=== PATIENT | female | born 1955 | race Caucasian/White ===

== ENCOUNTER 2024-12-03 09:27 | Inpatient (IN) | payer MEDICARE, BC ==
[~2024-12-03] VITALS: Ht 160 cm; Wt 51.7 kg
[2024-12-03] VITALS (25 sets, daily range): BP systolic 110–144; BP diastolic 58–85; PULSE 74–108; RESP 15–26; TEMP 97.8–98.4; O2SAT 92–100
[~2024-12-03 09:27] MED LIST: CYMBALTA30 MG PO; LISINOPRIL10 MG PO; LYRICA75 MG PO; NORCO 10-325 T1 EACH PO; PLAVIX75 MG PO; SOMA350 MG PO
[2024-12-03] MEDS: SODIUM CHLORIDE 0.9% 1000ML 1,000 ML IV STA ×2 (10:02→10:03)
[2024-12-03] MEDS: ONDANSETRON HCL INJ 2MG/ML 2ML 2 MG/ML VIAL IV STA (10:05)
[2024-12-03] MEDS: Morphine 4mg INJECTION 4 MG/ML INJ IV STA (10:11)
[2024-12-03 10:16] LABS: INR 1.08; PROTHROMBIN TIME 14.7 seconds (11.9-14.5)
[2024-12-03 10:17] LABS: BASOPHILS # (AUTO) 0.1 (0.0-0.1); BASOPHILS % 0.6 % (0.0-1.0); HEMATOCRIT 44.7 % (34.2-44.1); LYMPHOCYTES # (AUTO) 1.5 (1.0-3.2); LYMPHOCYTES % 8.8 % (18.0-39.1); MEAN CORPUSCULAR HEMOGLOBIN 31.3 pg (28-32); MEAN CORPUSCULAR HGB CONC 33.6 g/dL (31-35); MEAN CORPUSCULAR VOLUME 93.1 fL (81-99); MONOCYTES # (AUTO) 1.3 (0.2-0.8); MONOCYTES % 7.8 % (4.4-11.3); NEUTROPHILS # (AUTO) 13.9 (2.1-6.9); NEUTROPHILS % 82.3 % (38.7-80.0); PARTIAL THROMBOPLASTIN TIME 34.7 seconds (23.8-35.5); PLATELET COUNT 208 x10e3/uL (140-360); RED CELL DISTRIBUTION WIDTH 13.4 % (11.7-14.4); WHITE BLOOD COUNT 16.92 x10e3/uL (4.8-10.8)
[2024-12-03 10:24] LABS: ALBUMIN 3.2 g/dL (3.5-5.0); ALBUMIN/GLOBULIN RATIO 1.1 (0.8-2.0); ANION GAP 17.3 mmol/L (8-16); BILIRUBIN,TOTAL 0.5 mg/dL (0.2-1.2); CALCIUM 8.9 mg/dL (8.4-10.2); CREATININE, SERUM 1.35 mg/dL (0.57-1.11); MAGNESIUM 2.2 MG/DL (1.3-2.1); POTASSIUM 4.3 mmol/L (3.5-5.1); TOTAL PROTEIN 6.1 g/dL (6.5-8.1)
[2024-12-03 10:31] LABS: TROPONIN I 0.111 ng/mL (0-0.300)
[2024-12-03] MEDS ORDERED: IOPAMIDOL 370 MG/ML 100 ML INFUS..BTL INJ ONE (10:45)
[2024-12-03] MEDS ORDERED: SODIUM CHLORIDE 0.9% 100 ML ONE (10:45)
[2024-12-03 11:39] LABS: LYMPHOCYTES % (MANUAL) 9 % (19-48); MONOCYTES % (MANUAL) 7 % (3.4-9.0); NEUTROPHILS % (MANUAL) 84 % (40-74); PLATELET ESTIMATE ADEQUATE; PLATELET MORPHOLOGY COMMENT NORMAL; RBC MORPHOLOGY COMMENT NORMAL
[2024-12-03 12:37] LABS: CLARITY,URINE CLOUDY (CLEAR); COLOR,URINE YELLOW (YELLOW); PH,URINE 5.5 (5 - 7)
[2024-12-03 12:38] LABS: BILIRUBIN,URINE NEGATIVE (NEGATIVE); GLUCOSE, URINE NEGATIVE (NEGATIVE); KETONES,URINE NEGATIVE (NEGATIVE); LEUKOCYTE ESTERASE ,URINE SMALL (NEGATIVE); NITRITE,URINE NEGATIVE (NEGATIVE); PROTEIN,URINE DIPSTICK TRACE (NEGATIVE); URINE UROBILINOGEN 0.2 mg/dL (0.2 - 1)
[2024-12-03 12:41] LABS: BACTERIA,URINE MODERATE /HPF; EPITHELIAL CELLS,URINE FEW /LPF; RBC,URINE 21-50 /HPF (0-5)
[2024-12-03] MEDS ORDERED: Morphine 4mg INJECTION 4 MG/ML INJ IV PRN (13:30)
[2024-12-03] MEDS: METRONIDAZOLE 500MG/NS 100ML 100 ML IV SCH (13:42)
[2024-12-03] MEDS: SODIUM CHLORIDE 0.9% 1000ML 1,000 ML IV SCH (13:42)
[2024-12-03] MEDS: Vancomycin IV 1 GM in SODIUM CHLORIDE 0.9% 250ML 250 ML IV SCH (15:17)
[2024-12-03] MEDS: LACTATED RINGER'S 1,000 ML INJ SCH (15:17)
[2024-12-03] MEDS: HYDROMORPHONE 1MG/1ML INJ IV PRN (15:18)
[2024-12-03 19:36] LABS: TROPONIN I 0.082 ng/mL (0-0.300)
[2024-12-04] VITALS (18 sets, daily range): BP systolic 133–161; BP diastolic 66–85; PULSE 76–108; RESP 12–27; TEMP 97.9–98.7; O2SAT 92–99
[2024-12-04 01:47] LABS: TROPONIN I 0.052 ng/mL (0-0.300)
[2024-12-04 06:40] LABS: BASOPHILS % 0.3 % (0.0-1.0); EOSINOPHILS # (AUTO) 0.1 (0.0-0.4); HEMOGLOBIN 10.6 g/dL (12.0-16.0); LYMPHOCYTES # (AUTO) 0.8 (1.0-3.2); LYMPHOCYTES % 8.5 % (18.0-39.1); MEAN CORPUSCULAR HEMOGLOBIN 30.6 pg (28-32); MEAN CORPUSCULAR HGB CONC 32.1 g/dL (31-35); MEAN CORPUSCULAR VOLUME 95.4 fL (81-99); MONOCYTES # (AUTO) 0.5 (0.2-0.8); MONOCYTES % 5.5 % (4.4-11.3); NEUTROPHILS # (AUTO) 7.5 (2.1-6.9); PLATELET COUNT 127 x10e3/uL (140-360); RED BLOOD COUNT 3.46 x10e6/uL (3.6-5.1); RED CELL DISTRIBUTION WIDTH 13.3 % (11.7-14.4); WHITE BLOOD COUNT 8.97 x10e3/uL (4.8-10.8)
[2024-12-04 07:09] LABS: ALBUMIN 2.3 g/dL (3.5-5.0); ALBUMIN/GLOBULIN RATIO 0.9 (0.8-2.0); ANION GAP 11.9 mmol/L (8-16); BILIRUBIN,TOTAL 0.5 mg/dL (0.2-1.2); CALCIUM 8.2 mg/dL (8.4-10.2); CREATININE, SERUM 0.69 mg/dL (0.57-1.11); POTASSIUM 3.9 mmol/L (3.5-5.1); TOTAL PROTEIN 4.9 g/dL (6.5-8.1)
[2024-12-04 07:39] LABS: TROPONIN I 0.046 ng/mL (0-0.300)
[2024-12-04 07:58] LABS: BAND NEUTROPHILS % (MANUAL) 6 %; LYMPHOCYTES % (MANUAL) 11 % (19-48); MONOCYTES % (MANUAL) 6 % (3.4-9.0); NEUTROPHILS % (MANUAL) 76 % (40-74); PLATELET ESTIMATE SLIGHTLY DECREASED; REACTIVE LYMPHOCYTES 1
[2024-12-04 07:59] LABS: PLATELET MORPHOLOGY COMMENT NORMAL; RBC MORPHOLOGY COMMENT NORMAL
[2024-12-04] MEDS: HYDROMORPHONE 1MG/1ML INJ IV ONE (09:26)
[2024-12-05] VITALS (23 sets, daily range): BP systolic 122–165; BP diastolic 66–100; PULSE 76–112; RESP 12–20; TEMP 97.8–98.2; O2SAT 92–98
[2024-12-05 05:10] LABS: BASOPHILS % 0.2 % (0.0-1.0); HEMATOCRIT 30.4 % (34.2-44.1); HEMOGLOBIN 10.1 g/dL (12.0-16.0); LYMPHOCYTES # (AUTO) 0.6 (1.0-3.2); LYMPHOCYTES % 6.1 % (18.0-39.1); MEAN CORPUSCULAR HEMOGLOBIN 31.3 pg (28-32); MEAN CORPUSCULAR HGB CONC 33.2 g/dL (31-35); MEAN CORPUSCULAR VOLUME 94.1 fL (81-99); MONOCYTES # (AUTO) 0.5 (0.2-0.8); MONOCYTES % 5.2 % (4.4-11.3); NEUTROPHILS # (AUTO) 9.1 (2.1-6.9); NEUTROPHILS % 88.2 % (38.7-80.0); PLATELET COUNT 131 x10e3/uL (140-360); RED BLOOD COUNT 3.23 x10e6/uL (3.6-5.1); RED CELL DISTRIBUTION WIDTH 12.8 % (11.7-14.4); WHITE BLOOD COUNT 10.33 x10e3/uL (4.8-10.8)
[2024-12-05 05:34] LABS: ANION GAP 16.9 mmol/L (8-16); CALCIUM 8.4 mg/dL (8.4-10.2); CHOL/HDL RATIO 2.3 (3.0-3.6); CREATININE, SERUM 0.66 mg/dL (0.57-1.11); MAGNESIUM 1.7 MG/DL (1.3-2.1); PHOSPHORUS 3.1 MG/DL (2.3-4.7); POTASSIUM 3.9 mmol/L (3.5-5.1)
[2024-12-05 05:35] LABS: % IRON SATURATION 14 % (15-50); IRON 29 ug/dL (50-170); TOTAL IRON BINDING CAPACITY 209 ug/dL (261-478); TRANSFERRIN 149 mg/dL (180-382)
[2024-12-05 05:56] LABS: FREE T4 (FREE THYROXINE) 0.77 ng/dL (0.8-1.8); THYROID STIMULATING HORMONE 1.122 uIU/mL (0.350-4.940)
[2024-12-05] MEDS: DEXTROSE 50% SYRINGE 50 ML IV PRN (06:10)
[2024-12-05] MEDS: ONDANSETRON HCL INJ 2MG/ML 2ML 2 MG/ML VIAL IV PRN (08:49)
[2024-12-05] MEDS: HYDROCODONE/APAP 10MG-325MG TAB PO PRN (14:13)
[2024-12-05 15:04] LABS: LYMPHOCYTES % (MANUAL) 8 % (19-48); MONOCYTES % (MANUAL) 3 % (3.4-9.0); NEUTROPHILS % (MANUAL) 89 % (40-74); PLATELET ESTIMATE ADEQUATE; PLATELET MORPHOLOGY COMMENT NORMAL
[2024-12-05] MEDS: HYDROMORPHONE 1MG/1ML INJ IV PRN ×2 (15:22→18:28)
[2024-12-06] VITALS (8 sets, daily range): BP systolic 139–165; BP diastolic 72–81; PULSE 85–97; RESP 15–21; TEMP 97.8–98.2; O2SAT 96–100
[2024-12-06] MEDS: IRON SUCROSE 100 MG in SODIUM CHLORIDE 0.9% 100 ML IV SCH (09:36)
[2024-12-06] MEDS: HYDROMORPHONE 1MG/1ML INJ IV PRN (12:50)
[2024-12-06] MEDS: PREGABALIN 75 MG CAP PO SCH (15:58)
[2024-12-06] MEDS: METRONIDAZOLE 500MG/NS 100ML 100 ML IV SCH (20:07)
[2024-12-07 04:00] VITALS: BP 149/76; PULSE 85; RESP 16; TEMP 99.2; O2SAT 96
[2024-12-07 09:04] VITALS: BP 170/75; PULSE 79; RESP 18; TEMP 98; O2SAT 98
[2024-12-07] MEDS: CLOPIDOGREL BISULFATE 75 MG TAB PO SCH (09:11)
[2024-12-07 09:50] VITALS: BP 170/75; PULSE 79; RESP 18; TEMP 98; O2SAT 98
[2024-12-07 11:31] VITALS: BP 162/84; PULSE 91; RESP 18; TEMP 97.9; O2SAT 99
[2024-12-07 15:54] VITALS: BP 154/79; PULSE 91; RESP 18; TEMP 97.2; O2SAT 96
[2024-12-07 20:00] VITALS: BP 145/80; PULSE 91; RESP 20; TEMP 97.7; O2SAT 97
[2024-12-08] VITALS: BP 138/62; PULSE 81; RESP 20; TEMP 98.1; O2SAT 97
[2024-12-08 04:00] VITALS: BP 159/83; PULSE 92; RESP 18; TEMP 98.2; O2SAT 97
[2024-12-08 05:25] LABS: BASOPHILS # (AUTO) 0.1 (0.0-0.1); BASOPHILS % 0.7 % (0.0-1.0); EOSINOPHILS % 0.1 % (0.0-6.0); HEMATOCRIT 35.4 % (34.2-44.1); HEMOGLOBIN 11.7 g/dL (12.0-16.0); LYMPHOCYTES # (AUTO) 1.1 (1.0-3.2); LYMPHOCYTES % 15.3 % (18.0-39.1); MEAN CORPUSCULAR HEMOGLOBIN 30.5 pg (28-32); MEAN CORPUSCULAR HGB CONC 33.1 g/dL (31-35); MEAN CORPUSCULAR VOLUME 92.4 fL (81-99); MONOCYTES % 13.9 % (4.4-11.3); NEUTROPHILS # (AUTO) 5.1 (2.1-6.9); NEUTROPHILS % 68.7 % (38.7-80.0); PLATELET COUNT 199 x10e3/uL (140-360); RED BLOOD COUNT 3.83 x10e6/uL (3.6-5.1); RED CELL DISTRIBUTION WIDTH 12.5 % (11.7-14.4); WHITE BLOOD COUNT 7.43 x10e3/uL (4.8-10.8)
[2024-12-08 06:07] LABS: ALANINE AMINOTRANSFERASE 9 IU/L (0-55); ALBUMIN 2.2 g/dL (3.5-5.0); ALBUMIN/GLOBULIN RATIO 0.8 (0.8-2.0); ALKALINE PHOSPHATASE 51 IU/L (40-150); BILIRUBIN,TOTAL 0.4 mg/dL (0.2-1.2); CALCIUM 8.1 mg/dL (8.4-10.2); CARBON DIOXIDE 29 mmol/L (22-29); CHLORIDE 103 mmol/L (98-107); CREATININE, SERUM 0.59 mg/dL (0.57-1.11); EST GLOMERULAR FILTRATION RATE 97 ML/MIN (>=60); GLUCOSE 97 mg/dL (74-118); SODIUM 142 mmol/L (136-145)
[2024-12-08 06:42] LABS: BUN/CREATININE RATIO 8 (6-25)
[2024-12-08 06:43] LABS: BLOOD UREA NITROGEN < 5 mg/dL (7-26)
[2024-12-08 08:00] VITALS: BP 152/80; PULSE 89; RESP 18; TEMP 98.1; O2SAT 100
[2024-12-08 09:00] VITALS: BP 152/80; PULSE 89; RESP 18; TEMP 98.1; O2SAT 100
[2024-12-08] MEDS ORDERED: AUGMENTIN 500-1 EACH PO (11:58)
[2024-12-08] MEDS ORDERED: ATORVASTATIN CA40 MG PO (11:58)
[2024-12-08] MEDS ORDERED: METRONIDAZOLE500 MG PO (11:58)
[2024-12-08] MEDS ORDERED: ASPIRIN EC81 MG PO (11:58)
[2024-12-08 12:00] VITALS: BP 144/76; PULSE 89; RESP 16; TEMP 97.9; O2SAT 100
== END 2024-12-08 12:45 | disposition home or self-care (01) | DRG 871 ==
LOC: ER 09:40 → ERHOLD 13:24 → ICU 14:36 → MED/SURG 12-06 17:00
PROVIDERS: ADMIT Internal Medicine; ATTEND Internal Medicine
PROC: 0T9B70Z Drainage of Bladder with Drainage Device, Via Natural or Artificial Opening (ICD-10-PCS; principal; 2024-12-04)
DX: A41.9 Sepsis, unspecified organism (principal); J18.9 Pneumonia, unspecified organism; K55.9 Vascular disorder of intestine, unspecified; N17.9 Acute kidney failure, unspecified; K62.5 Hemorrhage of anus and rectum; N39.0 Urinary tract infection, site not specified; J44.0 Chronic obstructive pulmonary disease with (acute) lower respiratory infection; E87.21 Acute metabolic acidosis; R65.20 Severe sepsis without septic shock; D50.9 Iron deficiency anemia, unspecified; E86.0 Dehydration; E78.5 Hyperlipidemia, unspecified; R19.7 Diarrhea, unspecified; R91.8 Other nonspecific abnormal finding of lung field; M54.9 Dorsalgia, unspecified; Z79.02 Long term (current) use of antithrombotics/antiplatelets; Z86.73 Personal history of transient ischemic attack (TIA), and cerebral infarction without residual deficits; Z90.710 Acquired absence of both cervix and uterus; Z88.0 Allergy status to penicillin; F17.200 Nicotine dependence, unspecified, uncomplicated
CPT/HCPCS: 36415; 71045; 71250; 74174; 80048; 80053; 80061; 80202; 81001; 82550; 82607; 82746; 82948; 83540; 83605; 83690; 83735; 84100; 84439; 84443; 84466; 84484; 85025; 85045; 85610; 85730; 87040; 87086; 87186; 93005; 93306; 94760; 94799; 99252; 99284; J1171; J1756; J2270; J2405; J2470; J7030; J7050; J7799; Q9967

== ENCOUNTER 2024-12-23 15:47 | Emergency (ER) | payer MEDICARE, BC ==
[~2024-12-23] VITALS: Ht 160 cm; Wt 47.6 kg
[~2024-12-23 15:47] MED LIST changes: +ASPIRIN EC81 MG PO; +ATORVASTATIN CA40 MG PO; +AUGMENTIN 500-1 EACH PO; +METRONIDAZOLE500 MG PO
[2024-12-23 17:26] VITALS: PULSE 82; RESP 17; TEMP 97; O2SAT 99
== END 2024-12-23 17:30 | disposition home or self-care (01) ==
LOC: FSED 16:10
DX: M79.672 Pain in left foot (principal); S92.355A Nondisplaced fracture of fifth metatarsal bone, left foot, initial encounter for closed fracture; W18.49XA Other slipping, tripping and stumbling without falling, initial encounter; Y93.01 Activity, walking, marching and hiking; Y92.89 Other specified places as the place of occurrence of the external cause; I10 Essential (primary) hypertension; J44.9 Chronic obstructive pulmonary disease, unspecified; I48.91 Unspecified atrial fibrillation; M54.9 Dorsalgia, unspecified; G89.29 Other chronic pain; Z86.73 Personal history of transient ischemic attack (TIA), and cerebral infarction without residual deficits; Z82.49 Family history of ischemic heart disease and other diseases of the circulatory system
CPT/HCPCS: 99284

== ENCOUNTER → 2025-04-09 | Outpatient (REF) | payer MEDICARE, BC ==
[~2025-04-09] MED LIST changes: +CRESTOR40 MG; +CYMBALTA30 MG; +HYDROCODON-ACE1 EAC9 PO
== END ==
LOC: DX 08:45
PROVIDERS: ATTEND Nurse Practitioner
DX: K52.9 Noninfective gastroenteritis and colitis, unspecified (principal); I10 Essential (primary) hypertension; Z80.0 Family history of malignant neoplasm of digestive organs
CPT/HCPCS: 74250